=== PATIENT | female | born 1950 | race Caucasian/White ===

== ENCOUNTER 2016-10-06 10:36 | Emergency (ER) | payer OTHER ==
[~2016-10-06] VITALS: Ht 165.1 cm; Wt 88.4 kg
[~2016-10-06 10:36] MED LIST: GABAPENTIN600 MG PO; IBUPROFEN600 MG PO; NORCO 5/3251 TABLET PO; ZOFRAN4 MG PO
[2016-10-06 11:03] VITALS: BP 144/105
[2016-10-06] MEDS ORDERED: MOTRIN800 MG PO (12:48)
[2016-10-06] MEDS ORDERED: PERCOCET 5/31 TABLET PO (12:48)
== END 2016-10-06 13:23 | disposition home or self-care (01) ==
LOC: EME 10:36
DX: M25.561 Pain in right knee (principal); M25.562 Pain in left knee; M25.461 Effusion, right knee; W01.0XXA Fall on same level from slipping, tripping and stumbling without subsequent striking against object, initial encounter
CPT/HCPCS: 73564; 99281; 99283